=== PATIENT | female | born 1960 | race Caucasian/White ===

== ENCOUNTER → 2017-12-09 | Outpatient (CLI) | payer MEDICARE ==
--- NOTE | 2017-12-09 10:37 | US ---
EXAMINATION TYPE: US carotid duplex BILAT DATE OF EXAM: 12/09/2017 COMPARISON: NONE CLINICAL HISTORY: I25.10 ATHEROSCLEROTIC HEART DISEASE OF CORONARY ARTERY. EXAM MEASUREMENTS: RIGHT: Peak Systolic Velocity (PSV) cm/sec ----- Right CCA: 59.0 ----- Right ICA: 90.2 ----- Right ECA: 91.1 ICA/CCA ratio: 1.5 RIGHT: End Diastole cm/sec ----- Right CCA: 20.6 ----- Right ICA: 21.7 ----- Right ECA: 14.2 LEFT: Peak Systolic Velocity (PSV) cm/sec ----- Left CCA: 61.1 ----- Left ICA: 87.4 ----- Left ECA: 80.2 ICA/CCA ratio: 1.4 LEFT: End Diastole cm/sec ----- Left CCA: 17.1 ----- Left ICA: 34.5 ----- Left ECA: 15.0 VERTEBRALS (direction of flow): Right Vertebral: Antegrade Left Vertebral: Antegrade Rhythm: Normal Minimal plaque, no significant velocity elevations. Grayscale images show no significant plaque at carotid bulb level bilaterally. Velocity measurements and ratios are within normal limits bilaterally. IMPRESSION: No hemodynamic significant stenosis is seen in either internal carotid artery.
== END | disposition home or self-care (01) ==
LOC: RADUSWWP 08:57
PROVIDERS: ATTEND Family Medicine
DX: I25.10 Atherosclerotic heart disease of native coronary artery without angina pectoris (principal)
CPT/HCPCS: 93880

== ENCOUNTER → 2018-02-03 | Outpatient (CLI) | payer MEDICARE ==
--- NOTE | 2018-02-03 10:59 | MM ---
Reason for exam: additional evaluation requested from prior study. Last mammogram was performed 1 year and 6 months ago. History: Patient is postmenopausal. Family history of breast cancer in daughter at age 38, breast cancer in maternal aunt at age 50, and breast cancer in maternal aunt. Pre-pectoral silicone gel implants in both breasts, 2008. Physical Findings: Nurse did not find any significant physical abnormalities on exam. MG Diag Mamm Implants TOMMY w CAD Bilateral CC, MLO, and ID view(s) were taken. Prior study comparison: August 18, 2016, bilateral MG diag mamm implants TOMMY w CAD. There are scattered fibroglandular densities. Finding: There are typically benign right dystrophic calcifications versus free silicone. No suspicious abnormality. Stable left upper outer quadrant focal asymmetries. No significant changes in finding since August 18, 2016. These results were verbally communicated with the patient and result sheet given to the patient on 02/03/18. ASSESSMENT: Benign, BI-RAD 2 RECOMMENDATION: Routine screening mammogram of both breasts in 1 year.
== END | disposition home or self-care (01) ==
LOC: RADMAMWWP 09:55
PROVIDERS: ATTEND Family Medicine
DX: R92.8 Other abnormal and inconclusive findings on diagnostic imaging of breast (principal)
CPT/HCPCS: 77066

== ENCOUNTER → 2018-10-10 | Outpatient (CLI) | payer MEDICARE ==
[2018-10-10 12:32] LABS: HCT 35.9 % (34.0-46.0); HGB 11.4 gm/dL (11.4-16.0); MCH 29.4 pg (25.0-35.0); MCHC 31.7 g/dL (31.0-37.0); MCV 92.8 fL (80.0-100.0); Mean Platelet Volume 5.9; Platelet Count 299 k/uL (150-450); RBC 3.87 m/uL (3.80-5.40); WBC 6.1 k/uL (3.8-10.6)
[2018-10-10 12:38] LABS: Potassium 4.9 mmol/L (3.5-5.1)
== END ==
LOC: LABPAT 11:42
PROVIDERS: ATTEND Internal Medicine Interventional Cardiology
DX: Z01.812 Encounter for preprocedural laboratory examination (principal); I25.10 Atherosclerotic heart disease of native coronary artery without angina pectoris; I10 Essential (primary) hypertension; E78.2 Mixed hyperlipidemia
CPT/HCPCS: 36415; 80051; 82565; 84520; 85027

== ENCOUNTER → 2018-10-12 | Day surgery (SDC) | payer MEDICARE ==
[~2018-10-12] MED LIST: ALPRAZolam 0.25 MG TAB PO PRN; ASPIRIN 325 MG TAB PO ONE; ASPIRIN 325 MG TAB PO SCH; CANNABIDIOL PO PRN; GABAPENTIN 100 MG CAP PO SCH; HEPARIN SODIUM 1,000 UN/ML (10ML VL) IV ONE; IOPAMIDOL-370 125ML BTL INJ ONE; LIDOCAINE 1% INJ 10MG/ML (20 ML MDV) ONE; LIDOCAINE 1% INJ 10MG/ML (20 ML MDV) SQ ONE; METOPROLOL SUCCINATE (ER) 25 MG TAB.ER.24H PO SCH; NON-FORMULARY DRUG (Omeprazole [Omeprazole] 20 MG) PO SCH; NON-FORMULARY DRUG (Simvastatin [Zocor] 40 MG) PO SCH; RX INFO: IV CONTRAST WAS GIVEN 1 EACH MISC MISCELLANE PRN; SODIUM CHLORIDE 0.9% 1,000 ML IV SCH; SODIUM CHLORIDE 0.9% 1,000 ML in EMPTY BAG 1 BAG IV ONE; SYMBICORT 160-4.5 MCG INHALER INHALATION PRN; VERAPAMIL 2.5 MG/ML 2 ML AMP ONE; VERAPAMIL SYRINGE (5 MG/10 ML) INTRAARTER ONE; diphenhydrAMINE 25 MG CAP PO SCH; fentaNYL (PF) 50 MCG/ML 2 ML AMP IV ONE; fentaNYL (PF) 50 MCG/ML 2 ML AMP ONE
[2018-10-12 11:38] VITALS: RESP 18; TEMP 97.8
--- NOTE | 2018-10-12 14:49 | CC ---
CARDIAC CATHETERIZATION REPORT Mrs. Ness is a 57-year-old female with known history of hypertension, hyperlipidemia, and a history of coronary artery disease and a family history of premature coronary disease who has underwent a recent myocardial perfusion imaging that revealed evidence of inducible ischemia in view of that, recommendation made regarding cardiac catheterization the procedures risks and complication were discussed with the patient who is in full understanding and agreement. PROCEDURE: Patient was brought to the systems testing laboratory technician in a fasting semi-sedated state after receiving fentanyl and Benadryl and achieving moderate conscious sedated state. Using Xylocaine anesthesia and Seldinger technique, a 6-Panamanian sheath was introduced in the right radial artery. Selective right and left angiography was performed using 5-Panamanian 3.5 bend right and left Ryan catheter, multiple views of the coronary artery including hemiaxial views were obtained. Following that, a 5-Panamanian tight pigtail catheter was introduced in the left ventricle and a 30 degree MOHAN view of the left ventricle was obtained. Following that, catheter and sheaths were removed, hemostasis was obtained with deployment of a TR band. There was no immediate complication. Patient is returned to her room in stable condition. Of note, patient received 5000 units of intravenous heparin, Neck and intra-arterial verapamil. FINDINGS: LEFT MAIN: This is a large-sized vessel, trifurcating into left circumflex, left anterior descending artery and ramus intermedius. Left main coronary artery has no evidence of high-grade stenosis. LEFT ANTERIOR DESCENDING ARTERY: This is a large-sized vessel reaching toward the apex with a wraparound apex segment giving rise to 3 diagonal branches of small to moderate caliber. The left anterior descending artery as well as branches have no evidence of obstructive coronary artery disease LEFT CIRCUMFLEX: This is a small nondominant vessel, giving rise to an obtuse marginal branch. The left circumflex as well as branches have no evidence of obstructive coronary artery disease. RAMUS INTERMEDIUS: This is a large-sized vessel reaching toward the apical lateral wall. The left circumflex as well as branches have no evidence of obstructive coronary artery disease. RIGHT CORONARY ARTERY: This is a large dominant vessel, bifurcating into PDA and posterolateral segment and branches. The right coronary artery and its branches have no evidence of obstructive coronary artery disease. LEFT VENTRICULOGRAM: Left ventriculogram is performed in 30 degree MOHAN view and revealed normal left ventricular size and systolic function. There was no significant mitral regurgitation. RIGHT CORONARY ARTERY: This is a large dominant next number dynamics there was no gradient across the aortic valve. The left ventricle end-diastolic pressure was 16-18 mmHg. mm;. CONCLUSION:: 1. Normal coronary arteries with no evidence of restenosis at the stented segment of the ramus intermedius. 2. Normal left ventricular systolic function. RECOMMENDATION: In view of finding anatomy, I recommend continue medical therapy with aggressive risk modifications being initiated. Those findings and recommendation were discussed with the patient and her family and they are in full understanding and agreement. Duration of the procedure is 20 minutes. MMODL / IJN: [id number] /
[2018-10-12 16:48] VITALS: BP 113/65
[2018-10-12 17:39] VITALS: PULSE 66
== END | disposition home or self-care (01) ==
LOC: CATHCVL 10:54
PROVIDERS: ATTEND Internal Medicine Interventional Cardiology
DX: I25.10 Atherosclerotic heart disease of native coronary artery without angina pectoris (principal); E78.2 Mixed hyperlipidemia; I10 Essential (primary) hypertension; Z82.49 Family history of ischemic heart disease and other diseases of the circulatory system; Z95.5 Presence of coronary angioplasty implant and graft; Z79.82 Long term (current) use of aspirin; Z79.899 Other long term (current) drug therapy
CPT/HCPCS: 93458; 99152; J2001; J3010; J1644; Q9967

== ENCOUNTER → 2019-03-23 | Outpatient (CLI) | payer MEDICARE ==
--- NOTE | 2019-03-24 10:08 | MM ---
Reason for exam: screening (asymptomatic). Last mammogram was performed 1 year and 2 months ago. History: Patient is postmenopausal. Family history of breast cancer in daughter at age 38, breast cancer in maternal aunt at age 50, and breast cancer in maternal aunt. Pre-pectoral silicone gel implants in both breasts, 2008. Physical Findings: A clinical breast exam by your physician is recommended on an annual basis and results should be correlated with mammographic findings. MG Screening Mammo Implant/CAD Bilateral CC, MLO, and ID view(s) were taken. Prior study comparison: February 03, 2018, bilateral MG diag mamm implants TOMMY w CAD. August 18, 2016, bilateral MG diag mamm implants TOMMY w CAD. There are scattered fibroglandular densities. There are benign appearing round calcifications in the left breast. There is chronic nodularity in the left breast. There is no discrete abnormality. Bilateral subglandular implants identified. Right dystrophic calcifications and tissue near implant. ASSESSMENT: Benign, BI-RAD 2 RECOMMENDATION: Routine screening mammogram of both breasts in 1 year.
== END | disposition home or self-care (01) ==
LOC: RADMAMWWP 07:21
PROVIDERS: ATTEND Family Medicine
DX: Z12.31 Encounter for screening mammogram for malignant neoplasm of breast (principal); Z80.3 Family history of malignant neoplasm of breast; Z98.82 Breast implant status
CPT/HCPCS: 77067

== ENCOUNTER → 2019-08-01 | Outpatient (CLI) | payer MEDICARE ==
[2019-08-01 14:03] LABS: Basophils # (A) 0.1 k/uL (0-0.2); Basophils % (A) 1 %; Eosinophils # (A) 0.2 k/uL (0-0.7); Eosinophils % (A) 2 %; HCT 38.8 % (34.0-46.0); HGB 12.9 gm/dL (11.4-16.0); Lymphocytes # (A) 1.4 k/uL (1.0-4.8); Lymphocytes % (A) 20 %; MCHC 33.1 g/dL (31.0-37.0); MCV 93.6 fL (80.0-100.0); Mean Platelet Volume 6.1; Monocytes # (A) 0.4 k/uL (0-1.0); Monocytes % (A) 5 %; Neutrophils # (A) 5.1 k/uL (1.3-7.7); Neutrophils % (A) 70 %; Platelet Count 302 k/uL (150-450); RBC 4.15 m/uL (3.80-5.40); RDW 14.2 % (11.5-15.5); WBC 7.3 k/uL (3.8-10.6)
== END | disposition home or self-care (01) ==
LOC: LABPAT 13:26
PROVIDERS: ATTEND Obstetrics & Gynecology
DX: Z01.812 Encounter for preprocedural laboratory examination (principal); N95.0 Postmenopausal bleeding; I10 Essential (primary) hypertension; I25.2 Old myocardial infarction
CPT/HCPCS: 36415; 85025

== ENCOUNTER 2019-08-14 08:14 | Day surgery (SDC) | payer MEDICARE ==
[2019-08-08 08:15] VITALS: BMI 39.6
[~2019-08-14 08:14] MED LIST changes: -ALPRAZolam 0.25 MG TAB PO PRN; -ASPIRIN 325 MG TAB PO ONE; -ASPIRIN 325 MG TAB PO SCH; -CANNABIDIOL PO PRN; +DEXAMETHASONE SOD PHOSPHATE 10 MG/ML 1 ML VIAL IV ONE; -GABAPENTIN 100 MG CAP PO SCH; -HEPARIN SODIUM 1,000 UN/ML (10ML VL) IV ONE; -IOPAMIDOL-370 125ML BTL INJ ONE; +LACTATED RINGERS 1,000 ML IV SCH; +LIDOCAINE 1% 20 ML VIAL (10MG/ML) FOR IV START INTRADERMA PRN; -LIDOCAINE 1% INJ 10MG/ML (20 ML MDV) ONE; -LIDOCAINE 1% INJ 10MG/ML (20 ML MDV) SQ ONE; -METOPROLOL SUCCINATE (ER) 25 MG TAB.ER.24H PO SCH; -NON-FORMULARY DRUG (Omeprazole [Omeprazole] 20 MG) PO SCH; -NON-FORMULARY DRUG (Simvastatin [Zocor] 40 MG) PO SCH; +ONDANSETRON 4 MG/2 ML VIAL IVP ONE; +Pre Op ABX Message 1 EACH MISC MISCELLANE ONE; -RX INFO: IV CONTRAST WAS GIVEN 1 EACH MISC MISCELLANE PRN; +SCOPOLAMINE 1.5MG/72HR PATCH TRANSDERM ONE; -SODIUM CHLORIDE 0.9% 1,000 ML IV SCH; -SODIUM CHLORIDE 0.9% 1,000 ML in EMPTY BAG 1 BAG IV ONE; -SYMBICORT 160-4.5 MCG INHALER INHALATION PRN; -VERAPAMIL 2.5 MG/ML 2 ML AMP ONE; -VERAPAMIL SYRINGE (5 MG/10 ML) INTRAARTER ONE; -diphenhydrAMINE 25 MG CAP PO SCH; -fentaNYL (PF) 50 MCG/ML 2 ML AMP IV ONE; -fentaNYL (PF) 50 MCG/ML 2 ML AMP ONE
[2019-08-14] MEDS ORDERED: LIDOCAINE 1% INJ 10MG/ML (20 ML MDV) ONE (09:20)
[2019-08-14] MEDS ORDERED: KETOROLAC 30 MG/ML 1 ML VIAL ONE (09:20)
[2019-08-14] MEDS ORDERED: fentaNYL (PF) 50 MCG/ML 2 ML AMP ONE (09:20)
[2019-08-14] MEDS ORDERED: MIDAZOLAM 2 MG/2 ML VIAL ONE (09:20)
[2019-08-14] MEDS ORDERED: SUCCINYLCHOLINE CHLORIDE 100 MG/5 ML SYR IV ONE (09:20)
[2019-08-14] MEDS ORDERED: PROPOFOL 10 MG/ML 20 ML VIAL IV ONE (09:20)
--- NOTE | 2019-08-14 10:10 | P.OP ---
Date of Procedure: 08/14/19 Preoperative Diagnosis: Postmenopausal bleeding, history of endometrial hyperplasia, endometrial polyps Postoperative Diagnosis: Same, pathology pending Procedure(s) Performed: Hysteroscopy, D&C, polypectomy Anesthesia: KAYODEA Surgeon: Nava Kidd Estimated Blood Loss (ml): 5 IV fluids (ml): 300 Urine output (ml): 150 Pathology: other (Endometrial curettings and polyps) Condition: stable Disposition: PACU Operative Findings: Multiple large endometrial polyps. Grade 3 rectocele. Description of Procedure: Patient is brought to the operating suite where a general anesthetic is administered without difficulty. She's placed in the dorsal lithotomy position. The appropriate timeout was performed to assure proper patient and procedural identification. The cervix, vagina, perineal areas are all prepped and draped in the usual sterile fashion. Bladder is drained for 150 mL of clear yellow urine. Examination under anesthesia reveals a grade 3 rectocele, a small cervix, a small anteverted and teeth flexed uterus and negative adnexa bilaterally. Weighted speculum was placed into the vagina. Anterior lip of the cervix is grasped with a double-tooth tenaculum. Uterus sounds to a depth of 8 cm in the anteverted position. Cervix was gently and systematically dilated using Hanks dilators. The hysteroscope was placed and fluid is infused. Upon distending the cavity there are multiple endometrial polyps noted, most notably in the anterior fundal region. The hysteroscope was removed. A medium sharp curette is used and multiple polyps are removed. Hysteroscope was once again placed, an d additional polyp is visualized. It is once again placed, the polyp forceps are used and the residual polyp is removed. All sponge needle and enhancement counts were correct at the end of the proce dure. Patient is brought back to the recovery room in stable condition. Vital signs are stable, pulse 67, blood pressure 117/74, 100% O2 saturation. Toradol is given prior to leaving the operative suite. Patient will follow-up with me in the office in 2 weeks, written instructions are provided.
[2019-08-14 10:16] VITALS: TEMP 97.6
[2019-08-14] MEDS: HYDROmorphone 0.5 MG/0.5 ML SYRINGE IVP PRN ×2 (10:18→10:28)
[2019-08-14 11:09] VITALS: BP 123/80; PULSE 63; RESP 18
== END 2019-08-14 11:30 | disposition home or self-care (01) ==
LOC: OR 08:14
PROVIDERS: ATTEND Obstetrics & Gynecology
DX: N84.0 Polyp of corpus uteri (principal); N95.0 Postmenopausal bleeding; N81.6 Rectocele; I25.2 Old myocardial infarction; I25.10 Atherosclerotic heart disease of native coronary artery without angina pectoris; I10 Essential (primary) hypertension; E78.5 Hyperlipidemia, unspecified; K21.9 Gastro-esophageal reflux disease without esophagitis; Z79.82 Long term (current) use of aspirin; Z79.51 Long term (current) use of inhaled steroids; Z79.899 Other long term (current) drug therapy; Z95.5 Presence of coronary angioplasty implant and graft; Z98.890 Other specified postprocedural states; Z82.69 Family history of other diseases of the musculoskeletal system and connective tissue; Z82.49 Family history of ischemic heart disease and other diseases of the circulatory system; Z83.6 Family history of other diseases of the respiratory system; Z83.79 Family history of other diseases of the digestive system
CPT/HCPCS: 58558; J2250; J1100; J2405; J2001; J3010; J1885; J0330; J2704; J1170; 88305

== ENCOUNTER → 2020-08-15 | Outpatient (CLI) | payer MEDICARE ==
--- NOTE | 2020-08-15 08:35 | XR ---
EXAMINATION TYPE: XR scoliosis survey, AP and lateral views DATE OF EXAM: 08/15/2020 Comparison: None Clinical History: 59-year-old female M41 Scoliosis Findings: Severe dextroconvex scoliosis centered at the upper lumbar spine. Pal angle measured at 47 degrees. Right lateral subluxation of L2 on L3 by 1.6 cm. The degree of curvature makes the lateral view very limited. There is an accentuated lumbar lordosis. Impression: Severe dextroconvex scoliosis centered along the upper lumbar spine with Pal angle of 47 degrees, ri ght lateral subluxation of L2 on L3 by 1.6 cm, and an accentuated lumbar lordosis.
--- NOTE | 2020-08-15 08:47 | CT ---
EXAMINATION TYPE: CT thor lumbar spine wo con DATE OF EXAM: 08/15/2020 COMPARISON: Outside Lumbar spine x-ray August 05, 2020. Scoliosis survey August 15, 2020 HISTORY: Tspine and Lspine pain CT DLP: 2258.00 mGycm Automated exposure control for dose reduction was used. FINDINGS: Corresponding to outside imaging there is prominent dextroconvex scoliosis centered at L1 level and r eactive levoconvex scoliosis centered at L4-L5 level. There are 5 lumbar-type vertebra. Thoracic spine shows straightening alignment. Vertebral body heights and disc space heights are maint ained. Mild multilevel anterior and lateral spurring in the lower thoracic spine paraspinal canal is preserved. Incidental disc calcification at the T8-T9 level. There is mild to moderate disc space narrowing and spurring at the left T12-L1 level and left L1-L2 l evel. There is moderate disc space narrowing with vacuum disc phenomenon and right-sided step off of the L3 on the L4 vertebra. Posterior spur disc complex effaces anterior thecal sac at the left L1-L2 level on sagittal image 28 and axial image 121. Review of the axial images shows moderate to severe right greater than left uncovertebral facet degen erative changes L2-L3 through the L5-S1 levels. There is subtle 9 mm nonspecific lytic focus left iliac bone next image 164. Partially exophytic 1.4 cm ball-shaped lesion left kidney axial image 119 has Hounsfield units averag ing 10 and 11 favoring simple thin-walled cyst. Visualized lungs are clear. Coronary artery stent in the proximal LAD is suspected, correlate clinically. IMPRESSION: Scoliosis and degenerative changes in the lumbar spine as detailed above.
== END | disposition home or self-care (01) ==
LOC: RADCTMAIN 07:43
PROVIDERS: ATTEND Orthopaedic Surgery
DX: M41.86 Other forms of scoliosis, lumbar region (principal); S33.120A Subluxation of L2/L3 lumbar vertebra, initial encounter
CPT/HCPCS: 72082; 72128; 72131

== ENCOUNTER 2020-08-23 13:24 | Emergency (ER) | payer MEDICARE ==
[2020-08-23 13:36] VITALS: RESP 18
[2020-08-23 13:42] LABS: Glucose,Whole Blood 126 mg/dL (75-99)
--- NOTE | 2020-08-23 14:12 | ED ---
Neuro HPI - General Chief Complaint: Neuro Symptoms/Deficit Stated Complaint: dizziness, elevated BP, confusion Time Seen by Provider: 08/23/20 13:49 Source: patient, RN notes reviewed Mode of arrival: wheelchair Limitations: no limitations - History of Present Illness Is the patient presenting with stroke symptoms?: No Initial Comments: This is a 59-year-old female with a history of heart disease and a cardiac stent as well as a history of hypertension who states she had the onset earlier prior to admission of dizziness which did not seem to get any worse or better with positional changes or movement. She does states she's had very anxious she denies any fevers chills nausea vomiting sweats she has no focal weakness or upper or lower extremities she does states she's feeling better at this time. No recent illnesses that she is aware of. No other complaints or modifying factors he does take a daily baby aspirin. She did state that she noted that her blood pressure was elevated 168/100 and has improved since however. He does state that the stent placement was 2013. - Related Data Home Medications: Home Medications Medication Instructions Recorded Confirmed Aspirin 81 mg PO HS 03/02/16 08/14/19 Budesonide/Formoterol Fumarate 2 puff INHALATION BID PRN 10/07/18 08/14/19 [Symbicort 160-4.5 Mcg Inhaler] Metoprolol Succinate [Toprol XL] 25 mg PO HS 10/07/18 08/14/19 Omeprazole 20 mg PO DAILY 10/07/18 08/14/19 Atorvastatin [Lipitor] 20 mg PO HS 08/08/19 08/14/19 Previous Rx's Medication Instructions Recorded Meclizine [Antivert] 25 mg PO TID #20 tab 08/23/20 Allergies/Adverse Reactions: Allergies Allergy/AdvReac Type Severity Reaction Status Date / Time No Known Allergies Allergy Verified 08/23/20 13:36 Review of Systems ROS Statement: Those systems with pertinent positive or pertinent negative responses have been documented in the HPI. ROS Other: All systems not noted in ROS Statement are negative. General Exam - General Exam Comments Initial Comments: This is a well-developed well-nourished awake alert oriented 3 female Limitations: no limitations General appearance: alert, in no apparent distress Head exam: Present: atraumatic, normocephalic, normal inspection Eye exam: Present: normal appearance, PERRL, EOMI. Absent: scleral icterus, conjunctival injection, periorbital swelling ENT exam: Present: normal exam, mucous membranes moist Neck exam: Present: normal inspection, full ROM, other (No stridor JVD or bruits). Absent: tenderness, meningismus, lymphadenopathy Respiratory exam: Present: normal lung sounds bilaterally. Absent: respiratory distress, wheezes, rales, rhonchi, stridor Cardiovascular Exam: Present: normal rhythm, tachycardia, normal heart sounds, other (Heart rate 112 on my exam). Absent: systolic murmur, diastolic murmur, rubs, gallop, clicks GI/Abdominal exam: Present: soft, normal bowel sounds. Absent: distended, tenderness, guarding, rebound, rigid Extremities exam: Present: normal inspection, full ROM, normal capillary refill. Absent: tenderness, pedal edema, joint swelling, calf tenderness Back exam: Present: normal inspection Neurological exam: Present: alert, oriented X3, CN II-XII intact Psychiatric exam: Present: normal affect, normal mood Skin exam: Present: warm, dry, intact, normal color. Absent: rash Stroke MDM - Lab Data Result diagrams: 08/23/20 14:45 08/23/20 14:45 Lab Results 08/23/20 08/23/20 08/23/20 Range/Units 13:42 14:45 14:45 WBC 8.7 (3.8-10.6) k/uL RBC 4.24 (3.80-5.40) m/uL Hgb 13.0 (11.4-16.0) gm/dL Hct 39.6 (34.0-46.0) % MCV 93.4 (80.0-100.0) fL MCH 30.7 (25.0-35.0) pg MCHC 32.9 (31.0-37.0) g/dL RDW 13.2 (11.5-15.5) % Plt Count 373 (150-450) k/uL MPV 7.2 Neutrophils % 60 % Lymphocytes % 28 % Monocytes % 6 % Eosinophils % 3 % Basophils % 1 % Neutrophils # 5.2 (1.3-7.7) k/uL Lymphocytes # 2.4 (1.0-4.8) k/uL Monocytes # 0.5 (0-1.0) k/uL Eosinophils # 0.3 (0-0.7) k/uL Basophils # 0.1 (0-0.2) k/uL PT 9.5 (9.0-12.0) sec INR 0.9 (<1.2) APTT 24.1 (22.0-30.0) sec Sodium (137-145) mmol/L Potassium (3.5-5.1) mmol/L Chloride (98-107) mmol/L Carbon Dioxide (22-30) mmol/L Anion Gap mmol/L BUN (7-17) mg/dL Creatinine (0.52-1.04) mg/dL Est GFR (CKD-EPI)AfAm (>60 ml/min/1.73 sqM) Est GFR (CKD-EPI)NonAf (>60 ml/min/1.73 sqM) Glucose (74-99) mg/dL POC Glucose (mg/dL) 126 H (75-99) mg/dL POC Glu Citrix Consultant ID Topmost, Adelaida Calcium (8.4-10.2) mg/dL Total Bilirubin (0.2-1.3) mg/dL AST (14-36) U/L ALT (4-34) U/L Alkaline Phosphatase (38-126) U/L Creatine Kinase (30-135) U/L Troponin I (0.000-0.034) ng/mL Total Protein (6.3-8.2) g/dL Albumin (3.5-5.0) g/dL 08/23/20 08/23/20 Range/Units 14:45 14:45 WBC (3.8-10.6) k/uL RBC (3.80-5.40) m/uL Hgb (11.4-16.0) gm/dL Hct (34.0-46.0) % MCV (80.0-100.0) fL MCH (25.0-35.0) pg MCHC (31.0-37.0) g/dL RDW (11.5-15.5) % Plt Count (150-450) k/uL MPV Neutrophils % % Lymphocytes % % Monocytes % % Eosinophils % % Basophils % % Neutrophils # (1.3-7.7) k/uL Lymphocytes # (1.0-4.8) k/uL Monocytes # (0-1.0) k/uL Eosinophils # (0-0.7) k/uL Basophils # (0-0.2) k/uL PT (9.0-12.0) sec INR (<1.2) APTT (22.0-30.0) sec Sodium 139 (137-145) mmol/L Potassium 4.2 (3.5-5.1) mmol/L Chloride 109 H (98-107) mmol/L Carbon Dioxide 23 (22-30) mmol/L Anion Gap 7 mmol/L BUN 22 H (7-17) mg/dL Creatinine 1.09 H (0.52-1.04) mg/dL Est GFR (CKD-EPI)AfAm 65 (>60 ml/min/1.73 sqM) Est GFR (CKD-EPI)NonAf 56 (>60 ml/min/1.73 sqM) Glucose 120 H (74-99) mg/dL POC Glucose (mg/dL) (75-99) mg/dL POC Glu Citrix Consultant ID Calcium 9.5 (8.4-10.2) mg/dL Total Bilirubin 0.6 (0.2-1.3) mg/dL AST 73 H (14-36) U/L ALT 81 H (4-34) U/L Alkaline Phosphatase 118 (38-126) U/L Creatine Kinase 48 (30-135) U/L Troponin I <0.012 (0.000-0.034) ng/mL Total Protein 6.9 (6.3-8.2) g/dL Albumin 4.2 (3.5-5.0) g/dL - NIH Stroke Scale 1a. Level of Consciousness: (0) alert 1b. LOC Questions: (0) answers correctly 1c. LOC Commands: (0) performs tasks correctly 2. Best Gaze: (0) normal 3. Visual: (0) no visual loss 4. Facial Palsy: (0) normal symmetrical movement 5a. Motor Arm Left: (0) no drift 5b. Motor Arm Right: (0) no drift 6a. Motor Leg Left: (0) no drift 6b. Motor Leg Right: (0) no drift 7. Limb Ataxia: (0) absent 8. Sensory: (0) normal 9. Best Language: (0) no aphasia 10. Dysarthria: (0) normal 11. Extinction/Inattention: (0) no abnormality - Medical Decision Making I did review the findings with the patient and family. Patient is improved with no further symptoms at this time. CTs were all negative. The presentation consistent with a dizzy episode likely of Lambert pain origin. Patient be given a prescription for Antivert she is follow-up with her doctor return when necessary advised to increase oral fluid consumption as there is some evidence of find depletion. - Radiology Data Radiology results: report reviewed, image reviewed (Review of old imaging shows no acute findings. He stated complete report) - EKG Data -: EKG Interpreted by Me EKG shows normal: sinus rhythm (Sinus tachycardia rate 120. Interval 150 QRS duration 88 QT since QTC 320/463 st-t wave changes) Past Medical History Past Medical History: Myocardial Infarction (HI), Skin Disorder Additional Past Medical History / Comment(s): vitiligo,hiatal hernia, scolosis Last Myocardial Infarction Date:: 06-26 History of Any Multi-Drug Resistant Organisms: None Reported Past Surgical History: Heart Catheterization With Stent Additional Past Surgical History / Comment(s): heart stent x1,breast implant Past Anesthesia/Blood Transfusion Reactions: No Reported Reaction Date of Last Stent Placement:: Past Psychological History: No Psychological Hx Reported Smoking Status: Never smoker Past Alcohol Use History: None Reported Past Drug Use History: None Reported - Past Family History Mother Family Medical History: No Reported History Father Family Medical History: Coronary Artery Disease (CAD), CVA/TIA Additional Family Medical History / Comment(s): CABG Course Vital Signs 08/23/20 08/23/20 08/23/20 13:32 13:45 14:00 Temperature 98.6 F 98 F Pulse Rate 121 H 104 H 81 Respiratory 18 18 18 Rate Blood Pressure 157/107 143/103 143/97 O2 Sat by Pulse 100 99 100 Oximetry 08/23/20 08/23/20 08/23/20 14:15 14:30 14:45 Temperature Pulse Rate 81 90 85 Respiratory 18 18 18 Rate Blood Pressure 144/90 130/77 137/73 O2 Sat by Pulse 99 100 100 Oximetry 08/23/20 15:00 Temperature Pulse Rate 74 Respiratory 18 Rate Blood Pressure 139/82 O2 Sat by Pulse 100 Oximetry Disposition Clinical Impression: Dizzy, Vertigo, Dehydration Disposition: HOME SELF-CARE Condition: Good Instructions (If sedation given, give patient instructions): Vertigo (ED), Dehydration (ED), Dizziness (ED) Prescriptions: Meclizine [Antivert] 25 mg PO TID #20 tab Is patient prescribed a controlled substance at d/c from ED?: No Referrals: George Leal MD [Primary Care Provider] - 1-2 days
--- NOTE | 2020-08-23 14:57 | CT ---
EXAMINATION TYPE: CT brain wo con for TPA DATE OF EXAM: 08/23/2020 COMPARISON: None HISTORY: 59-year-old female with dizziness and confusion, neurologic deficit, acute, stroke suspected . TECHNIQUE: Examination was done in axial plane without intravenous contrast. Coronal and sagittal r econstructions performed. CT DLP: 1058.8 mGycm Automated exposure control for dose reduction was used. FINDINGS: Beam hardening artifact projects over the mid to inferior aspect of the brain. Allowing for this limitation, there is no evidence of acute intracranial hemorrhage, acute ischemic changes, mass, mass-effect, or extra-axial fluid collection. There is no effacement of cerebral sulc i or basal subarachnoid cisterns. There is no hydrocephalus. There is no midline shift. Velasquez-white matter distinction is preserved. Partially empty sella. Paranasal sinuses and mastoid air cells well pneumatized. Orbits and globes are intact. IMPRESSION: No acute intracranial abnormality seen.
[2020-08-23 14:59] LABS: Basophils # (A) 0.1 k/uL (0-0.2); Basophils % (A) 1 %; Eosinophils # (A) 0.3 k/uL (0-0.7); Eosinophils % (A) 3 %; HCT 39.6 % (34.0-46.0); Lymphocytes # (A) 2.4 k/uL (1.0-4.8); Lymphocytes % (A) 28 %; MCH 30.7 pg (25.0-35.0); MCHC 32.9 g/dL (31.0-37.0); MCV 93.4 fL (80.0-100.0); Mean Platelet Volume 7.2; Monocytes # (A) 0.5 k/uL (0-1.0); Monocytes % (A) 6 %; Neutrophils # (A) 5.2 k/uL (1.3-7.7); Neutrophils % (A) 60 %; Platelet Count 373 k/uL (150-450); RBC 4.24 m/uL (3.80-5.40); RDW 13.2 % (11.5-15.5); WBC 8.7 k/uL (3.8-10.6)
--- NOTE | 2020-08-23 15:04 | CT ---
EXAMINATION TYPE: CT angio head neck DATE OF EXAM: 08/23/2020 COMPARISON: CT brain same day HISTORY: 59-year-old female Dizziness and confusion. TECHNIQUE: Contiguous axial scanning of the head and neck performed with IV Contrast, patient injecte d with 65 mL of Isovue 370. Coronal/sagittal MIP reconstructions performed. 3-D reconstructions gener ated on a dedicated workstation. CT DLP: 681.3 mGycm Automated exposure control for dose reduction was used. FINDINGS: NECK: Bovine configuration to the aortic arch. The bilateral vertebral arteries are codominant and patent throughout the course. The right common carotid artery is patent. Minimal eccentric atherosclerotic plaque and calcification right carotid bulb. Some beam hardening artifact affects the upper right ICA. Otherwise, the right ICA is patent. The left common and internal carotid arteries are patent. HEAD: V4 segment right vertebral artery after the PICA takeoff becomes hypoplastic. Otherwise, both vertebr al and basilar arteries are patent. The bilateral internal carotid arteries are patent. Prominent left posterior communicating artery. Both anterior and posterior circulations appear patent. No aneurysmal change is seen. IMPRESSION: 1. NECK: WIDELY PATENT COMMON AND INTERNAL CAROTID ARTERIES OF THE NECK. 2. HEAD: NORMAL ANATOMIC VARIATION WITH HYPOPLASTIC V4 SEGMENT RIGHT VERTEBRAL ARTERY AFTER THE PICA TAKEOFF. NO LARGE VESSEL INTRACRANIAL ARTERIAL OCCLUSION, SIGNIFICANT STENOSIS, OR ANEURYSMAL CHANGE IS SEEN.
[2020-08-23 15:09] LABS: Albumin 4.2 g/dL (3.5-5.0); Calcium 9.5 mg/dL (8.4-10.2); Potassium 4.2 mmol/L (3.5-5.1); Total Bilirubin 0.6 mg/dL (0.2-1.3); Total Protein 6.9 g/dL (6.3-8.2)
[2020-08-23 15:10] LABS: INR 0.9 (<1.2); Partial Thromboplastin Time 24.1 sec (22.0-30.0); Prothrombin Time 9.5 sec (9.0-12.0)
--- NOTE | 2020-08-23 15:48 | XR ---
EXAMINATION TYPE: XR chest 2V DATE OF EXAM: 08/23/2020 COMPARISON: None INDICATION: Altered mental status TECHNIQUE: Frontal and lateral views of the chest are obtained. FINDINGS: The heart size is normal. The pulmonary vasculature is normal. The lungs are clear. IMPRESSION: 1. No acute pulmonary process.
[2020-08-23 17:15] VITALS: BP 145/78; PULSE 83; TEMP 98.6
== END 2020-08-23 17:15 | disposition home or self-care (01) ==
LOC: EC 13:24
DX: E86.0 Dehydration (principal); I25.2 Old myocardial infarction; I10 Essential (primary) hypertension; Z79.82 Long term (current) use of aspirin; Z79.899 Other long term (current) drug therapy; Z95.5 Presence of coronary angioplasty implant and graft
CPT/HCPCS: 36415; 93005; 80053; 82550; 84484; 85025; 85610; 85730; 71046; 70496; 70450; 70498; 99285; Q9967

== ENCOUNTER → 2020-10-03 | Outpatient (CLI) | payer MEDICARE ==
--- NOTE | 2020-10-04 12:17 | MR ---
EXAMINATION TYPE: MR lumbar spine wo con DATE OF EXAM: 10/03/2020 COMPARISON: None HISTORY: Back pain, left sided, Right leg does go numb. Known scoliosis CONTRAST: 0 mL intravenous Gadavist. TECHNIQUE: Multiplanar, multisequence images of the lumbar spine were acquired. FINDINGS: There is scoliosis to the lumbar spine with convexity to the right centered at approximate ly L2. Vertebral body heights are preserved. Disc heights appear preserved. L5-S1: There is a moderate-sized central protrusion without contact with the sac. Exiting nerve roots appear intact. There is some mild facet hypertrophy present. No spinal canal stenosis. No foramina l stenosis. L4-L5: Minimal left paracentral bulge is present with mild anterior thecal sac contact. Facet hypertr ophy and ligamentum flavum laxity has right posterior lateral thecal sac compression. No spinal canal stenosis present. Neural foramen are patent L3-L4: Broad-based disc bulge is present. This is slightly greater to the right paracentral region. R ight lateral disc bulge is present contributing to severe right foraminal stenosis. Facet hypertrophy is present. No AP spinal canal stenosis present. Left foramen is patent. L2-L3: Facet hypertrophy is present ligamentum flavum laxity. This has left posterior lateral thecal sac compression. No AP spinal canal stenosis present. Right broad-based disc bulge is present into th e right lateral region. The foramen are patent. L1-L2: No focal disc herniation is evident. Facet hypertrophy is present foramen are patent T12-L1: Mild disc space narrowing may be present. No focal disc herniation or significant disc bulge is evident. No spinal canal stenosis or neural foraminal stenosis is present. IMPRESSION: 1. Scoliosis. 2. Severe right foraminal narrowing due to disc bulging and scoliosis at the L3-4 level 3. Central focal protrusion L5-S1 without thecal sac compression. 4. Disc bulging present L4-5, L3-4 without significant thecal sac compression.
== END | disposition home or self-care (01) ==
LOC: RADMRIMAIN 12:08
PROVIDERS: ATTEND Orthopaedic Surgery
DX: M48.061 Spinal stenosis, lumbar region without neurogenic claudication (principal); M51.26 Other intervertebral disc displacement, lumbar region; M51.27 Other intervertebral disc displacement, lumbosacral region; M41.86 Other forms of scoliosis, lumbar region
CPT/HCPCS: 72148

== ENCOUNTER → 2021-02-25 | Outpatient (CLI) | payer MEDICARE ==
--- NOTE | 2021-02-26 09:55 | MM ---
Reason for exam: screening (asymptomatic). Last mammogram was performed 1 year and 11 months ago. History: Patient is postmenopausal. Family history of breast cancer in daughter at age 38, breast cancer in maternal aunt at age 50, and breast cancer in maternal aunt. Pre-pectoral silicone gel implants in both breasts, 2008. Taking other hormone beginning at age 50. Physical Findings: A clinical breast exam by your physician is recommended on an annual basis and results should be correlated with mammographic findings. MG 3D Screen Mammo Imp/Cad Bilateral CC, MLO, and ID view(s) were taken. Prior study comparison: March 23, 2019, bilateral MG screening mammo implant/CAD. February 03, 2018, bilateral MG diag mamm implants TOMMY w CAD. There are scattered fibroglandular densities. There is chronic nodularity in the left breast. There is no discrete abnormality. Bilateral subglandular implants redemonstrated. No significant changes when compared with prior studies. ASSESSMENT: Benign, BI-RAD 2 RECOMMENDATION: Routine screening mammogram of both breasts in 1 year.
== END | disposition home or self-care (01) ==
LOC: RADMAMWWP 08:16
PROVIDERS: ATTEND Family Medicine
DX: Z12.31 Encounter for screening mammogram for malignant neoplasm of breast (principal); Z80.3 Family history of malignant neoplasm of breast; Z78.0 Asymptomatic menopausal state
CPT/HCPCS: 77063; 77067

== ENCOUNTER 2022-01-24 18:16 | Emergency (ER) | payer MEDICARE ==
[2022-01-24 18:33] VITALS: TEMP 98.2
--- NOTE | 2022-01-24 19:54 | ED ---
Chest Pain HPI - General Chief Complaint: Chest Pain Stated Complaint: Chest Pain,Back&Jaw Pain Time Seen by Provider: 01/24/22 18:58 Source: patient, RN notes reviewed Mode of arrival: wheelchair Limitations: no limitations - History of Present Illness Initial Comments: 61-year-old female history of PA in the past with stent placement 2013 at [facility] who presents with complaints of the onset prior to admission of back pain that radiated to her jaw left ear and around to her left shoulder and left chest. She states it was achy and dull in nature H/10 severity no associated symptoms of nausea vomiting sweats shortness of breath. She states it feels somewhat different than her previous experience in 2013. I did persist of her couple hours she states MD Complaint: chest pain - Related Data Home Medications Medication Instructions Recorded Confirmed Aspirin 81 mg PO DAILY 03/02/16 01/24/22 Metoprolol Succinate [Toprol XL] 25 mg PO DAILY 10/07/18 01/24/22 Omeprazole 20 mg PO DAILY 10/07/18 01/24/22 Atorvastatin [Lipitor] 40 mg PO DAILY 01/24/22 01/24/22 methylPREDNISolone [Medrol Dose See Taper PO DAILY 01/24/22 01/24/22 Pack] Allergies Allergy/AdvReac Type Severity Reaction Status Date / Time No Known Allergies Allergy Verified 01/24/22 20:35 Review of Systems ROS Statement: Those systems with pertinent positive or pertinent negative responses have been documented in the HPI. ROS Other: All systems not noted in ROS Statement are negative. EKG Findings - EKG Results: EKG: interpreted by LAMBERT, sinus rhythm (Sinus rhythm 85. Interval 137 QRS mandaeism 8070 QT since QTC 333/375 nonspecific T-wave configuration) Past Medical History Past Medical History: Myocardial Infarction (PA), Skin Disorder Additional Past Medical History / Comment(s): vitiligo,hiatal hernia, scolosis Last Myocardial Infarction Date:: 06-26 History of Any Multi-Drug Resistant Organisms: None Reported Past Surgical History: Heart Catheterization With Stent Additional Past Surgical History / Comment(s): heart stent x1,breast implant Past Anesthesia/Blood Transfusion Reactions: No Reported Reaction Date of Last Stent Placement:: Past Psychological History: No Psychological Hx Reported Smoking Status: Never smoker Past Alcohol Use History: None Reported Past Drug Use History: None Reported - Past Family History Mother Family Medical History: No Reported History Father Family Medical History: Coronary Artery Disease (CAD), CVA/TIA Additional Family Medical History / Comment(s): CABG General Exam - General Exam Comments Initial Comments: This is a well-developed well-nourished awake alert oriented 3 female Limitations: no limitations General appearance: alert, in no apparent distress Head exam: Present: atraumatic, normocephalic, normal inspection Eye exam: Present: normal appearance, PERRL, EOMI. Absent: scleral icterus, conjunctival injection, periorbital swelling ENT exam: Present: normal exam, mucous membranes moist Neck exam: Present: normal inspection, full ROM, other (No stridor JVD or bruits). Absent: tenderness, meningismus, lymphadenopathy Respiratory exam: Present: normal lung sounds bilaterally. Absent: respiratory distress, wheezes, rales, rhonchi, stridor, chest wall tenderness Cardiovascular Exam: Present: regular rate, normal rhythm, normal heart sounds. Absent: systolic murmur, diastolic murmur, rubs, gallop, clicks GI/Abdominal exam: Present: soft, normal bowel sounds. Absent: distended, tenderness, guarding, rebound, rigid Extremities exam: Present: normal inspection, full ROM, normal capillary refill. Absent: tenderness, pedal edema, joint swelling, calf tenderness Back exam: Present: normal inspection, full ROM. Absent: tenderness Neurological exam: Present: alert, oriented X3, CN II-XII intact Psychiatric exam: Present: normal affect, normal mood Skin exam: Present: warm, dry, intact, normal color. Absent: rash Course Vital Signs 01/24/22 01/24/22 01/24/22 18:29 19:32 20:32 Temperature 98.2 F Pulse Rate 89 78 81 Respiratory 18 18 16 Rate Blood Pressure 155/88 142/85 142/88 O2 Sat by Pulse 96 97 95 Oximetry Chest Pain MDM - MDM Imaging reviewed no acute findings I did a long discussion with the patient regarding the findings and the symptoms that brought her in today. We had a long discussion regarding the possibility of this. The presentation of a cardiac event she does states she recently had a complete cardiac workup including a workup with contrast material. Echocardiogram was all negative. She is not was in hospital tonight she agrees except this responsibility she continues to take baby aspirin daily she will follow-up with Dr. Espinosa in 2 days and return parameters were discussed. Patient does believe this may be arthritic in nature she's been having arthritic type pains in her neck and left TMJ or quite some time. Disposition Clinical Impression: Atypical chest pain Disposition: HOME SELF-CARE Condition: Good Instructions (If sedation given, give patient instructions): Chest Pain (ED) Is patient prescribed a controlled substance at d/c from ED?: No Referrals: George Leal MD [Primary Care Provider] - 1-2 days Decision Date: 01/24/22 Decision Time: 21:19
[2022-01-24 20:21] LABS: Albumin 4.5 g/dL (3.5-5.0); Calcium 9.5 mg/dL (8.4-10.2); Magnesium 2.2 mg/dL (1.6-2.3); Potassium 4.8 mmol/L (3.5-5.1); Total Bilirubin 0.6 mg/dL (0.2-1.3); Total Protein 7.3 g/dL (6.3-8.2)
[2022-01-24 20:24] LABS: Basophils # (A) 0.1 k/uL (0-0.2); Basophils % (A) 1 %; Eosinophils # (A) 0.1 k/uL (0-0.7); Eosinophils % (A) 1 %; HCT 40.5 % (34.0-46.0); HGB 13.2 gm/dL (11.4-16.0); Lymphocytes # (A) 1.3 k/uL (1.0-4.8); Lymphocytes % (A) 10 %; MCH 30.5 pg (25.0-35.0); MCHC 32.7 g/dL (31.0-37.0); MCV 93.4 fL (80.0-100.0); Mean Platelet Volume 8.3; Monocytes # (A) 0.9 k/uL (0-1.0); Monocytes % (A) 7 %; Neutrophils # (A) 10.1 k/uL (1.3-7.7); Neutrophils % (A) 81 %; Platelet Count 417 k/uL (150-450); RBC 4.34 m/uL (3.80-5.40); RDW 13.7 % (11.5-15.5); WBC 12.5 k/uL (3.8-10.6)
[2022-01-24 20:30] LABS: INR 0.9 (<1.2); Partial Thromboplastin Time 22.5 sec (22.0-30.0); Prothrombin Time 9.9 sec (9.0-12.0)
[2022-01-24 20:41] VITALS: RESP 16
--- NOTE | 2022-01-24 20:47 | XR ---
EXAMINATION TYPE: XR chest 2V DATE OF EXAM: 01/24/2022 COMPARISON: 08/23/2020 HISTORY: Chest pain TECHNIQUE: FINDINGS: Heart and mediastinum are normal. Lungs are clear. Diaphragm is normal. Bony thorax appears normal. There are chest leads. IMPRESSION: Normal chest. No change.
[2022-01-24 22:29] VITALS: BP 143/70; PULSE 77
== END 2022-01-24 22:30 | disposition home or self-care (01) ==
LOC: EC 18:16
DX: R07.89 Other chest pain (principal); I25.2 Old myocardial infarction
CPT/HCPCS: 36415; 71046; 80053; 83690; 83735; 84484; 85025; 85379; 85610; 85730; 93005

== ENCOUNTER → 2023-02-10 | Outpatient (CLI) | payer MEDICARE ==
--- NOTE | 2023-02-11 07:20 | MM ---
Reason for Exam: Screening (asymptomatic). Last mammogram was performed 1 year(s) and 11 month(s) ago. Patient History: Menarche at age 16. First Full-Term at age 18. Postmenopausal. 2008, Bilateral Implants. Maternal aunt had breast cancer, age 50. Daughter had breast cancer, age 38. Risk Values: Lauren 5 year model risk: 2.6%. NCI Lifetime model risk: 11.5%. Prior Study Comparison: 02/03/2018 Bilateral Diagnostic Mammogram, [facility]. 03/23/2019 Bilateral Screening Mammogram, [facility]. 02/25/2021 Bilateral Screening Mammogram, [facility]. Tissue Density: The breast tissue is almost entirely fat. Findings: Analyzed By CAD. Bilateral breast implants the calcifications noted left greater than right. There is no suspicious group of microcalcifications or new suspicious mass in either breast. Overall Assessment: Benign, BI-RAD 2 Management: Screening Mammogram of both breasts in [address] [facility] will attempt to contact patient to return for supplemental views and ultrasound if indicated. Patient should continue monthly self-breast exams. A clinical breast exam by your physician is recommended on an annual basis. This exam should not preclude additional follow-up of suspicious palpable abnormalities. Note on Lauren scores and lifetime risk: 1. A Lauren score greater than 3% is considered moderate risk. If this is the case, consider specialist referral to assess eligibility for a risk reducing agent. 2. If overall lifetime risk for the development of breast cancer is 20% or higher, the patient may qualify for future screening with alternating mammogram and breast MRI. Electronically signed and approved by: David Ross DO
== END | disposition home or self-care (01) ==
LOC: RADMAMWWP 10:29
PROVIDERS: ATTEND Family Medicine
DX: Z12.31 Encounter for screening mammogram for malignant neoplasm of breast (principal); Z78.0 Asymptomatic menopausal state; Z80.3 Family history of malignant neoplasm of breast
CPT/HCPCS: 77063; 77067

== ENCOUNTER 2023-02-18 09:59 | Emergency (ER) | payer MEDICARE ==
--- NOTE | 2023-02-18 10:28 | ED ---
General Adult HPI - General Chief complaint: Recheck/Abnormal Lab/Rx Stated complaint: Hoarseness of the voice Time Seen by Provider: 02/18/23 10:11 Source: patient, RN notes reviewed Mode of arrival: ambulatory Limitations: no limitations - History of Present Illness Initial comments: Patient is a pleasant 62-year-old female presenting to the emergency department with several complaints. Patient's main complaint is having hoarseness of voice. Patient states this is been occurring for around 2 months now. Patient states there is minimal discomfort in the back of her throat. Patient has been on steroids once and antibiotics twice. Patient denies any history of reflux however states she has a hiatal hernia and is on omeprazole. Patient states she did have some mucus in her throat today with a blood tinge to it and states this made her nervous. Patient is having mild discomfort in her jaw as well. No chest pain. Patient questions if she may be short of breath or not. - Related Data Home Medications Medication Instructions Recorded Confirmed Aspirin 81 mg PO DAILY 03/02/16 01/24/22 Metoprolol Succinate [Toprol XL] 25 mg PO DAILY 10/07/18 01/24/22 Omeprazole 20 mg PO DAILY 10/07/18 01/24/22 Atorvastatin [Lipitor] 40 mg PO DAILY 01/24/22 01/24/22 methylPREDNISolone [Medrol Dose See Taper PO DAILY 01/24/22 01/24/22 Pack] Previous Rx's Medication Instructions Recorded Sucralfate [Sucralfate Oral Susp] 1 gm PO ACHS #100 ml 02/18/23 Allergies Allergy/AdvReac Type Severity Reaction Status Date / Time No Known Allergies Allergy Verified 02/18/23 10:06 Review of Systems ROS Statement: Those systems with pertinent positive or pertinent negative responses have been documented in the HPI. ROS Other: All systems not noted in ROS Statement are negative. Constitutional: Denies: fever Eyes: Denies: eye pain ENT: Reports: as per HPI, throat pain, congestion. Denies: ear pain Respiratory: Reports: as per HPI Cardiovascular: Denies: chest pain Endocrine: Denies: fatigue Gastrointestinal: Denies: abdominal pain Genitourinary: Denies: dysuria Musculoskeletal: Denies: back pain Skin: Denies: rash Neurological: Denies: weakness Past Medical History Past Medical History: Myocardial Infarction ([place]), Skin Disorder Additional Past Medical History / Comment(s): vitiligo,hiatal hernia, scolosis Last Myocardial Infarction Date:: 06-26 History of Any Multi-Drug Resistant Organisms: None Reported Past Surgical History: Heart Catheterization With Stent Additional Past Surgical History / Comment(s): heart stent x1,breast implant Past Anesthesia/Blood Transfusion Reactions: No Reported Reaction Date of Last Stent Placement:: Past Psychological History: No Psychological Hx Reported Smoking Status: Never smoker Past Alcohol Use History: None Reported Past Drug Use History: None Reported - Past Family History Mother Family Medical History: No Reported History Father Family Medical History: Coronary Artery Disease (CAD), CVA/TIA Additional Family Medical History / Comment(s): CABG General Exam Limitations: no limitations General appearance: alert, in no apparent distress Head exam: Present: normocephalic Eye exam: Present: normal appearance ENT exam: Present: normal oropharynx Neck exam: Present: normal inspection Respiratory exam: Present: normal lung sounds bilaterally Cardiovascular Exam: Present: regular rate, normal rhythm GI/Abdominal exam: Present: soft. Absent: tenderness Extremities exam: Present: normal inspection Neurological exam: Present: alert Psychiatric exam: Present: normal affect, normal mood Skin exam: Present: normal color Course Vital Signs 02/18/23 02/18/23 02/18/23 10:02 11:11 12:32 Temperature 97 F L Pulse Rate 92 99 82 Respiratory 18 16 18 Rate Blood Pressure 123/89 135/100 142/81 O2 Sat by Pulse 98 97 97 Oximetry EKG Findings - EKG Results: EKG: interpreted by ERMD, sinus rhythm, normal axis, normal QRS, normal ST/T Medical Decision Making - Medical Decision Making Was pt. sent in by a medical professional or institution (, PA, CERTIFIED FORKLIFT OPERATOR, urgent care, hospital, or fci...) When possible be specific @ -No Did you speak to anyone other than the patient for history (EMS, parent, family, police, friend...)? What history was obtained from this source @ -No Did you review nursing and triage notes (agree or disagree)? Why? @ -I reviewed and agree with nursing and triage notes Were old charts reviewed (outside hosp., previous admission, EMS record, old EKG, old radiological studies, urgent care reports/EKG's, fci records)? Report findings @ -No old charts were reviewed Differential Diagnosis (chest pain, altered mental status, abdominal pain women, abdominal pain men, vaginal bleeding, weakness, fever, dyspnea, syncope, headache, dizziness, GI bleed, back pain, seizure, CVA, palpatations, mental health)? @ -Differential Dyspnea: Coronary syndrome, arrhythmia, tamponade, asthma, COPD, pulmonary embolism, pneumonia, pneumothorax, pulmonary effusion, anaphylaxis, diabetic ketoacidosis, flailed chest, pulmonary contusion, diaphragmatic rupture, anemia, neuromuscular, this is not meant to be an all-inclusive list. EKG interpreted by me (3pts min.). @ -As above X-rays interpreted by me (1pt min.). @ -Chest x-ray shows no acute process CT interpreted by me (1pt min.). @ -None done U/S interpreted by me (1pt. min.). @ -None done What testing was considered but not performed or refused? (CT, X-rays, U/S, labs)? Why? @ -None What meds were considered but not given or refused? Why? @ -None Did you discuss the management of the patient with other professionals (professionals i.e. , PA, CERTIFIED FORKLIFT OPERATOR, lab, RT, psych nurse, social professionals, drama teacher, teacher, safety and security officer, porter sample case)? Give summary @ -No Was smoking cessation discussed for >3mins.? @ -No Was critical care preformed (if so, how long)? @ -No Were there social determinants of health that impacted care today? How? ( Homelessness, low income, unemployed, alcoholism, drug addiction, transportation, low edu. Level, literacy, decrease access to med. care, detention, rehab)? @ -No Was there de-escalation of care discussed even if they declined (Discuss DNR or withdrawal of care, Hospice)? DNR status @ -No What co-morbidities impacted this encounter? (DM, HTN, Smoking, COPD, CAD, Cancer, CVA, ARF, Chemo, Hep., AIDS, mental health diagnosis, sleep apnea, morbid obesity)? @ -None Was patient admitted / discharged? Hospital course, mention meds given and route, prescriptions, significant lab abnormalities, going to OR and other pertinent info. @ -Patient reevaluated and resting comfortably in bed. Patient updated on results and plan. Patient will be discharged with ENT and GI follow-up and prescribed Carafate Undiagnosed new problem with uncertain prognosis? @ -No Drug Therapy requiring intensive monitoring for toxicity (Heparin, Nitro, Insulin, Cardizem)? @ -No Were any procedures done? @ -No Diagnosis/symptom? @ -Hoarseness Acute, or Chronic, or Acute on Chronic? @ -Acute Uncomplicated (without systemic symptoms) or Complicated (systemic symptoms)? @ -default Side effects of treatment? @ -No Exacerbation, Progression, or Severe Exacerbation? @ -No Poses a threat to life or bodily function? How? (Chest pain, [place], [place], pneumonia, PE, COPD, DKA, ARF, appy, cholecystitis, CVA, Diverticulitis, Homicidal, Suicidal, threat to staff... and all critical care pts) @ -No - Lab Data Result diagrams: 02/18/23 10:41 02/18/23 10:41 Lab Results 02/18/23 02/18/23 02/18/23 Range/Units 10:41 10:41 10:41 WBC 8.8 (3.8-10.6) k/uL RBC 4.28 (3.80-5.40) m/uL Hgb 12.8 (11.4-16.0) gm/dL Hct 39.0 (34.0-46.0) % MCV 91.1 (80.0-100.0) fL MCH 30.0 (25.0-35.0) pg MCHC 32.9 (31.0-37.0) g/dL RDW 13.4 (11.5-15.5) % Plt Count 329 (150-450) k/uL MPV 6.6 Neutrophils % 80 % Lymphocytes % 11 % Monocytes % 6 % Eosinophils % 1 % Basophils % 0 % Neutrophils # 7.0 (1.3-7.7) k/uL Lymphocytes # 1.0 (1.0-4.8) k/uL Monocytes # 0.5 (0-1.0) k/uL Eosinophils # 0.1 (0-0.7) k/uL Basophils # 0.0 (0-0.2) k/uL PT 10.1 (9.0-12.0) sec INR 0.9 (<1.2) APTT 23.5 (22.0-30.0) sec D-Dimer 0.33 (<0.60) mg/L FEU Sodium 136 L (137-145) mmol/L Potassium 4.3 (3.5-5.1) mmol/L Chloride 104 (98-107) mmol/L Carbon Dioxide 23 (22-30) mmol/L Anion Gap 9 mmol/L BUN 19 H (7-17) mg/dL Creatinine 0.92 (0.52-1.04) mg/dL Est GFR (CKD-EPI)AfAm 77 (>60 ml/min/1.73 sqM) Est GFR (CKD-EPI)NonAf 67 (>60 ml/min/1.73 sqM) Glucose 107 H (74-99) mg/dL Plasma Lactic Acid Cem (0.7-2.0) mmol/L Calcium 8.9 (8.4-10.2) mg/dL Magnesium 2.1 (1.6-2.3) mg/dL Total Bilirubin 0.7 (0.2-1.3) mg/dL AST 38 H (14-36) U/L ALT 29 (4-34) U/L Alkaline Phosphatase 129 H (38-126) U/L Troponin I (0.000-0.034) ng/mL NT-Pro-B Natriuret Pep pg/mL Total Protein 6.5 (6.3-8.2) g/dL Albumin 3.9 (3.5-5.0) g/dL Influenza Type A (PCR) (Not Detectd) Influenza Type B (PCR) (Not Detectd) RSV (PCR) (Not Detectd) SARS-CoV-2 (PCR) (Not Detectd) 02/18/23 02/18/23 02/18/23 Range/Units 10:41 10:41 10:41 WBC (3.8-10.6) k/uL RBC (3.80-5.40) m/uL Hgb (11.4-16.0) gm/dL Hct (34.0-46.0) % MCV (80.0-100.0) fL MCH (25.0-35.0) pg MCHC (31.0-37.0) g/dL RDW (11.5-15.5) % Plt Count (150-450) k/uL MPV Neutrophils % % Lymphocytes % % Monocytes % % Eosinophils % % Basophils % % Neutrophils # (1.3-7.7) k/uL Lymphocytes # (1.0-4.8) k/uL Monocytes # (0-1.0) k/uL Eosinophils # (0-0.7) k/uL Basophils # (0-0.2) k/uL PT (9.0-12.0) sec INR (<1.2) APTT (22.0-30.0) sec D-Dimer (<0.60) mg/L FEU Sodium (137-145) mmol/L Potassium (3.5-5.1) mmol/L Chloride (98-107) mmol/L Carbon Dioxide (22-30) mmol/L Anion Gap mmol/L BUN (7-17) mg/dL Creatinine (0.52-1.04) mg/dL Est GFR (CKD-EPI)AfAm (>60 ml/min/1.73 sqM) Est GFR (CKD-EPI)NonAf (>60 ml/min/1.73 sqM) Glucose (74-99) mg/dL Plasma Lactic Acid Cem 1.3 (0.7-2.0) mmol/L Calcium (8.4-10.2) mg/dL Magnesium (1.6-2.3) mg/dL Total Bilirubin (0.2-1.3) mg/dL AST (14-36) U/L ALT (4-34) U/L Alkaline Phosphatase (38-126) U/L Troponin I <0.012 (0.000-0.034) ng/mL NT-Pro-B Natriuret Pep 41 pg/mL Total Protein (6.3-8.2) g/dL Albumin (3.5-5.0) g/dL Influenza Type A (PCR) (Not Detectd) Influenza Type B (PCR) (Not Detectd) RSV (PCR) (Not Detectd) SARS-CoV-2 (PCR) (Not Detectd) 02/18/23 Range/Units 10:41 WBC (3.8-10.6) k/uL RBC (3.80-5.40) m/uL Hgb (11.4-16.0) gm/dL Hct (34.0-46.0) % MCV (80.0-100.0) fL MCH (25.0-35.0) pg MCHC (31.0-37.0) g/dL RDW (11.5-15.5) % Plt Count (150-450) k/uL MPV Neutrophils % % Lymphocytes % % Monocytes % % Eosinophils % % Basophils % % Neutrophils # (1.3-7.7) k/uL Lymphocytes # (1.0-4.8) k/uL Monocytes # (0-1.0) k/uL Eosinophils # (0-0.7) k/uL Basophils # (0-0.2) k/uL PT (9.0-12.0) sec INR (<1.2) APTT (22.0-30.0) sec D-Dimer (<0.60) mg/L FEU Sodium (137-145) mmol/L Potassium (3.5-5.1) mmol/L Chloride (98-107) mmol/L Carbon Dioxide (22-30) mmol/L Anion Gap mmol/L BUN (7-17) mg/dL Creatinine (0.52-1.04) mg/dL Est GFR (CKD-EPI)AfAm (>60 ml/min/1.73 sqM) Est GFR (CKD-EPI)NonAf (>60 ml/min/1.73 sqM) Glucose (74-99) mg/dL Plasma Lactic Acid Cem (0.7-2.0) mmol/L Calcium (8.4-10.2) mg/dL Magnesium (1.6-2.3) mg/dL Total Bilirubin (0.2-1.3) mg/dL AST (14-36) U/L ALT (4-34) U/L Alkaline Phosphatase (38-126) U/L Troponin I (0.000-0.034) ng/mL NT-Pro-B Natriuret Pep pg/mL Total Protein (6.3-8.2) g/dL Albumin (3.5-5.0) g/dL Influenza Type A (PCR) Not Detected (Not Detectd) Influenza Type B (PCR) Not Detected (Not Detectd) RSV (PCR) Not Detected (Not Detectd) SARS-CoV-2 (PCR) Not Detected (Not Detectd) Disposition Clinical Impression: Hoarseness Disposition: HOME SELF-CARE Condition: Stable Instructions (If sedation given, give patient instructions): Upper Respiratory Infection (ED) Additional Instructions: Please follow-up with primary care physician in the next day or 2 for recheck. Please also follow-up with ENT and gastroenterology. Consider scope by ENT and gastroenterology. Return for difficulty breathing, pain, bleeding, worsening or changing symptoms or any other concerns. Prescription sent to pharmacy Prescriptions: Sucralfate [Sucralfate Oral Susp] 1 gm PO ACHS #100 ml Is patient prescribed a controlled substance at d/c from ED?: No Referrals: George Leal MD [Primary Care Provider] - 1-2 days Time of Disposition: 12:38
[2023-02-18 11:04] LABS: Basophils % (A) 0 %; Eosinophils # (A) 0.1 k/uL (0-0.7); Eosinophils % (A) 1 %; HGB 12.8 gm/dL (11.4-16.0); Lymphocytes % (A) 11 %; MCHC 32.9 g/dL (31.0-37.0); MCV 91.1 fL (80.0-100.0); Mean Platelet Volume 6.6; Monocytes # (A) 0.5 k/uL (0-1.0); Monocytes % (A) 6 %; Neutrophils % (A) 80 %; Platelet Count 329 k/uL (150-450); RBC 4.28 m/uL (3.80-5.40); RDW 13.4 % (11.5-15.5); WBC 8.8 k/uL (3.8-10.6)
[2023-02-18 11:17] LABS: INR 0.9 (<1.2); Partial Thromboplastin Time 23.5 sec (22.0-30.0); Prothrombin Time 10.1 sec (9.0-12.0)
[2023-02-18 11:28] LABS: ALT 29 U/L (4-34); AST 38 U/L (14-36); African American GFR (CKD) 77 (>60 ml/min/1.73 sqM); Albumin 3.9 g/dL (3.5-5.0); Alkaline Phosphatase 129 U/L (38-126); Anion Gap 9 mmol/L; Blood Urea Nitrogen 19 mg/dL (7-17); Calcium 8.9 mg/dL (8.4-10.2); Carbon Dioxide 23 mmol/L (22-30); Chloride 104 mmol/L (98-107); Glucose 107 mg/dL (74-99); Magnesium 2.1 mg/dL (1.6-2.3); Non-African American GFR(CKD) 67 (>60 ml/min/1.73 sqM); Potassium 4.3 mmol/L (3.5-5.1); Sodium 136 mmol/L (137-145); Total Bilirubin 0.7 mg/dL (0.2-1.3); Total Protein 6.5 g/dL (6.3-8.2)
--- NOTE | 2023-02-18 11:34 | XR ---
EXAMINATION TYPE: XR chest 2V DATE OF EXAM: 02/18/2023 COMPARISON: 01/24/2022 HISTORY: 62 year-old female shortness of breath, difficulty breathing TECHNIQUE: PA and lateral views FINDINGS: The cardiomediastinal silhouette, aorta, and pulmonary vasculature are within normal limits. Incident al coronary stent. Some stringy atelectasis in the lower lungs. Otherwise, lungs and pleural spaces a re clear. IMPRESSION: No acute cardiopulmonary process.
[2023-02-18 12:32] VITALS: BP 142/81
[2023-02-18 12:59] VITALS: PULSE 80; RESP 16; TEMP 98.2
== END 2023-02-18 13:05 | disposition home or self-care (01) ==
LOC: EC 09:59
DX: R49.0 Dysphonia (principal); I25.2 Old myocardial infarction; Z79.82 Long term (current) use of aspirin; Z20.822 Contact with and (suspected) exposure to COVID-19
CPT/HCPCS: 36415; 71046; 80053; 83605; 83735; 83880; 84484; 85025; 85379; 85610; 85730; 87636; 93005; 99284

== ENCOUNTER → 2023-08-13 | Outpatient (CLI) | payer MEDICARE ==
--- NOTE | 2023-08-13 12:33 | CT ---
EXAMINATION TYPE: CT sinus wo con DATE OF EXAM: 08/13/2023 COMPARISON: None HISTORY: chronic sinusitis CT DLP: 587.50 mGycm. Automated Exposure Control for Dose Reduction was Utilized. TECHNIQUE: CT scan of the sinuses is performed without contrast, axial images are obtained, coronal r eformatted images are also reviewed. FINDINGS: The paranasal sinuses including the frontal, ethmoid, sphenoid, and maxillary sinuses bila terally are well-aerated without abnormal opacification. The ostiomeatal complex is patent bilateral ly on the coronal images. Visualized portion of mastoid air cells show no abnormal opacification. The globes are intact bilate rally. Nasal septal deviation. Intracranial atherosclerotic changes most marked involving cavernous segment bilateral ICA. Spina bifida occulta C1. IMPRESSION: 1. The sinuses are clear and the ostiomeatal complex is patent bilaterally. No diagnostic evidence o f acute or chronic sinusitis.
== END | disposition home or self-care (01) ==
LOC: RADCTMAIN 10:35
PROVIDERS: ATTEND Otolaryngology
DX: J32.9 Chronic sinusitis, unspecified (principal)
CPT/HCPCS: 70486

== ENCOUNTER → 2024-06-14 | Outpatient (CLI) | payer MEDICARE ==
--- NOTE | 2024-06-15 13:31 | MM ---
Reason for Exam: Hx of breast augmentation, asymptomatic. Last mammogram was performed 1 year(s) and 5 month(s) ago. Patient History: Menarche at age 16. First Full-Term at age 18. Postmenopausal. 2008, Bilateral Implants. Maternal aunt had breast cancer, age 50. Daughter had breast cancer, age 38. Risk Values: Lauren 5 year model risk: 2.7%. NCI Lifetime model risk: 11.1%. Prior Study Comparison: 03/23/2019 Bilateral Screening Mammogram, [facility]. 02/25/2021 Bilateral Screening Mammogram, [facility]. 02/10/2023 Bilateral MG 3D screen mammo imp/cad., [facility]. Tissue Density: The breasts are almost entirely fatty. Findings: Analyzed By CAD. Bilateral breast implants appear intact. Right breast: There is no suspicious group of microcalcifications or new suspicious mass. Left breast: There is no suspicious group of microcalcifications or new suspicious mass. Overall Assessment: Negative, BI-RAD 1 Management: Screening Mammogram of both breasts in [address] [facility] will attempt to contact patient to return for supplemental views and ultrasound if indicated. Patient should continue monthly self-breast exams. A clinical breast exam by your physician is recommended on an annual basis. This exam should not preclude additional follow-up of suspicious palpable abnormalities. Note on Lauren scores and lifetime risk: 1. A Lauren score greater than 3% is considered moderate risk. If this is the case, consider specialist referral to assess eligibility for a risk reducing agent. 2. If overall lifetime risk for the development of breast cancer is 20% or higher, the patient may qualify for future screening with alternating mammogram and breast MRI. [facility], , 06/15/2024 1:28 PM. Electronically signed and approved by: David Ross DO
== END | disposition home or self-care (01) ==
LOC: RADMAMWWP 14:42
PROVIDERS: ATTEND Family Medicine
CPT/HCPCS: 77063; 77067

== ENCOUNTER → 2024-08-07 | Outpatient (CLI) | payer MEDICARE ==
[2024-08-07 16:13] LABS: HCT 39.6 % (37.2-46.3); HGB 12.8 g/dL (12.0-15.0); MCH 29.8 pg (27.0-32.0); MCHC 32.3 g/dL (32.0-37.0); MCV 92.1 FL (80.0-97.0); Mean Platelet Volume 9.8 FL (9.5-12.2); NRBC Per 100 WBC 0 X 10*3/uL (0.00-0.01); Platelet Count 332 X 10*3/uL (140-440); RDW 13.5 % (11.5-14.5); WBC 5.73 X 10*3/uL (4.50-10.00)
[2024-08-07 17:03] LABS: ALT 27 U/L (8-44); AST 27 U/L (13-35); Albumin 4.2 g/dL (3.8-4.9); Albumin/Globulin Ratio 1.83 Ratio (1.60-3.17); Alkaline Phosphatase 118 U/L (41-126); BUN/Creat Ratio 9.55 Ratio (12.00-20.00); Blood Urea Nitrogen 10.5 mg/dL (9.0-27.0); Calcium 9.8 mg/dL (8.7-10.3); Chloride 104 mmol/L (96-109); Chol/HDL Ratio 1.88 Ratio; Globulin 2.3 g/dL (1.6-3.3); Glucose 97 mg/dL (70-110); LDL Cholesterol,Calculated 59.2 mg/dL (0.0-131.0); Potassium 4.8 mmol/L (3.5-5.5); Sodium 140 mmol/L (135-145); Total Bilirubin 0.5 mg/dL (0.3-1.2); Total Protein 6.5 g/dL (6.2-8.2); VLDL Calculation 13.74 mg/dL (5.00-40.00)
== END | disposition home or self-care (01) ==
LOC: LABWHC1 10:03
PROVIDERS: ATTEND Nurse Practitioner Adult Health
DX: Z00.01 Encounter for general adult medical examination with abnormal findings (principal); E78.2 Mixed hyperlipidemia; E55.9 Vitamin D deficiency, unspecified; R53.83 Other fatigue; E66.3 Overweight
CPT/HCPCS: 36415; 80053; 80061; 82306; 85027